=== PATIENT | male | born 1935 | race Caucasian/White ===

== ENCOUNTER 2020-01-28 10:14 | Outpatient (CLI) | payer MEDICARE ==
[~2020-01-28 10:14] MED LIST: Magnevist 469MG/ML 20 ML VIAL ONE
--- NOTE | 2020-01-28 11:58 | MRI ---
MRI of thebrain with and without contrast: 01/28/2020 COMPARISON:None available HISTORY:Memory loss TECHNIQUE: Multiplanar multisequence MR imaging of thebrain with and without contrast Findings:The diffusion weighted imaging demonstrates no evidence for acute infarction. The axial gradient echo imaging demonstrates no evidence for intracranial hemorrhage. There is mild mucosal thickening involving the ethmoid air cells bilaterally. Arterial flow voids at the axial level of the skull base appear grossly unremarkable on the T2-weight ed imaging. There is mild/moderate diffuse cerebral volume loss with associated prominence of the ventricular sys tem. There are a few foci of increased T2 and FLAIR signal within the white matter suggesting mild small v essel disease. The postcontrast imaging demonstrates no abnormal enhancement within the brain parenchyma. Small foci of increased T2 and FLAIR signal noted within the right cerebellar hemisphere consistent w ith areas of prior infarction. IMPRESSION:Chronic findings as detailed above. No evidence for intracranial hemorrhage, acute infarct ion, or mass lesion.
== END 2020-01-28 10:15 | disposition home or self-care (01) ==
LOC: BICMRI 10:14
PROVIDERS: ATTEND Nurse Practitioner Acute Care
DX: R41.3 Other amnesia (principal); G31.89 Other specified degenerative diseases of nervous system; R90.89 Other abnormal findings on diagnostic imaging of central nervous system; J34.89 Other specified disorders of nose and nasal sinuses
CPT/HCPCS: 70553; 82565; A9579

== ENCOUNTER 2020-04-27 18:05 | Inpatient (IN) | payer MEDICARE ==
--- NOTE | 2020-04-27 18:28 | RAD ---
SINGLE VIEW CHEST: Date: 04/27/2020 COMPARISON: None. HISTORY: Weakness for 1 week and altered mental status. FINDINGS: Single view of the chest shows an enlarged cardiomediastinal silhouette. There is no evidence of cons olidation, mass, or pleural effusion. Degenerative changes are seen in the spine. There is a remote l eft clavicle fracture. IMPRESSION: No evidence of acute cardiopulmonary disease. POS: EAA
[2020-04-27 18:55] LABS: Bacteria/HPF None Seen HPF (None Seen); Bilirubin Negative (Negative); Blood, Urine 2+ (Negative); Clarity Clear (Clear); Glucose, Urine (Dipstick) Normal (Negative); Ketone, Urine Negative (Negative); Leukocyte Negative Leu/uL (Negative); Nitrite Negative (Negative); Protein, Urine (Dipstick) 30 mg/dL (Neg-Trace); RBC/HPF 0-3 HPF (0-3); Specific Gravity, Urine 1.025 (1.002-1.036); Squamous Epithelial None Seen HPF (0-3); WBC/HPF 0-3 HPF (0-3); pH, Urine 5.5 (5.0-9.0)
[2020-04-27 18:56] LABS: Amphetamine Not Detected (NotDetected); Barbiturates Screen Not Detected (NotDetected); Benzodiazepine Screen Not Detected (NotDetected); Cocaine Metabolite Screen Not Detected (NotDetected); Medtox Control Line Valid? VALID (VALID); Medtox Reader # READER 1; Methadone Not Detected (NotDetected); Methamphetamine Not Detected (NotDetected); Opiate Screen Not Detected (NotDetected); Oxycodone Screen Not Detected (NotDetected); Phencyclidine (PCP) Not Detected (NotDetected); THC/Cannabinoid Screen Not Detected (NotDetected); Tricyclic Screen Not Detected (NotDetected)
[2020-04-27 19:17] LABS: ALT (SGPT) 34 U/L (8-55); AST (SGOT) 119 U/L (5-34); Acetaminophen Less than 6.0 mcg/mL (10.0-30.0); Albumin 3.8 g/dL (3.4-4.8); Alcohol Less than 10 mg/dL (Less than 10); Alkaline Phosphatase 86 U/L (40-110); Anion Gap 15 mmol/L (10-20); BUN (Urea Nitrogen) 27 mg/dL (8.4-25.7); Bilirubin, Total 0.7 mg/dL (0.2-1.2); Calc. Creatinine Clearance 0 mL/min (70-130); Carbon Dioxide 28 mmol/L (23-31); Chloride 101 mmol/L (98-107); Globulin 3.6 g/dL (2.4-3.5); Glucose 96 mg/dL (83-110); Potassium 4.3 mmol/L (3.5-5.1); Protein, Total 7.4 g/dL (5.8-8.1); Salicylate Less than 8.0 mg/dL (15.0-30.0); Sodium 140 mmol/L (136-145)
--- NOTE | 2020-04-27 19:23 | CT ---
BRAIN CT WITHOUT IV CONTRAST: History: Altered mental status. FINDINGS: There is some atrophy and chronic white matter ischemic change. No focal mass or midline shift. No in tra or extraaxial hemorrhage. Sinuses and mastoids show no acute process. IMPRESSION: Atrophy and chronic white matter ischemic change. No mass or bleed. POS: RRE
[2020-04-27 19:24] LABS: CK (CPK) 6190 U/L (30-200); Hemoglobin 18.3 g/dL (14.0-18.0); Mean Corpuscular HGB CONC 33.6 g/dL (32.0-36.0); Mean Corpuscular Hemoglobin 32.5 pg (27.0-31.0); Mean Corpuscular Volume 96.8 fL (78.0-98.0); Mean Platelet Volume 7.7 fL (7.4-10.4); Platelet Count 190 thou/uL (130-400); RBC Distribution Width 12.9 % (11.5-14.5); Red Blood Cell (RBC) Count 5.62 mill/uL (4.70-6.10); White Blood Cell (WBC) Count 7.2 thou/uL (4.8-10.8)
[2020-04-27 19:35] LABS: CKMB 11.1 ng/mL (0-6.6)
[2020-04-27] MEDS ORDERED: Aspirin 325 MG TAB ONE (19:44)
[2020-04-27 19:47] LABS: Band 3 % (5-11); Lymphocytes 9 % (21-51); MDiff Complete? YES; Monocytes 17 % (0-10); Neutrophil 62 % (42-75); Platelet Morphology Comment Appears Adequate; RBC Morphology Normal; Reactive Lymphocytes 9 % (0-10)
--- NOTE | 2020-04-27 21:14 | PDOC.HHP ---
Hospitalist HPI Weakness History of Present Illness: This is an 84-year-old male patient with a history of cardiomegaly, hepatitis wh o presents to the ED this evening on account of progressive general weakness and a fall. Initial evaluation notes rhabdomyolysis Patient notes that he has otherwise been generally activepush-ups and running on a daily basis. Over the past month however he is becoming progressively more weak and unable to leave up to his tasks. He has fallen a couple of times in the past week. A couple of days ago he fell at home when he was by himself at night and he was too weak to get up and stayed on the ground all night till morning. He denies any associated diarrhea, polyuria or vomiting. He also denies the use of steroids or fibroids or any medication that would induce rhabdomyolysis. His friend found him and sent him to the ED yesterday. He he said at [facility]. I however do not see any records. He told me he was called to come back and he came here for further evaluation. He denies having lost consciousness or syncope or had any palpitations prior to his falls. He notes that they were mechanical in nature. Prior to this event he has not had any falls. He notes that he has been told he has irregular heartbeats however has not been formally diagnosed if atrial fibrillation or any arrhythmia for the metallic At presentation his blood pressure was 154/83, pulse 86, respiratory rate 18, temperature 98.2, saturation 98% on room air. CBC showed WBC of 7.7, hemoglobin 18.3 and platelets 190. Chemistry showed potassium 4.3, sodium 140 creatinine 1.34 from a baseline of 1.23 about a year ago. Troponin was 0.053 and AST 119. His creatinine kinase was 6190. Urinalysis showed proteinuria and 2+ blood. Alcohol and urine drug screen was essentially negative. Salicylate and acetaminophen were negative as well. Chest x-ray showed no acute events. Brain CT showed atrophy and chronic white matter changes however noted no acute events. EKG/monitoring showed A. fib with right bundle branch block. He he received 2 L normal saline and 3 to 4 mg aspirin. Hospitalist team was consulted to admit. Allergies/Adverse Reactions: Allergy/AdvReac Type Severity Reaction Status Date / Time No Allergy Information Allergy Unverified 03/28/20 13:49 Available Past History: PMHx: Cardiomegaly, hepatitis PSHx: Hand surgery. 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 He does not smoke drink or use illicit drugs. Hospitalist HPI ROS Constitutional: reports: weakness, malaise. denies: fever, chills, sweats Respiratory: denies: cough, shortness of breath, hemoptysis, SOB with excertion Cardiovascular: denies: chest pain, palpitations, orthopnea, paroxysmal noc. dys pnea Genitourinary: reports: incontinence (Occasional edge incontinence). denies: dysuria, frequency, hematuria, retention Neurological: denies: weakness, numbness, incoordination, change in speech All other systems reviewed; all pertinent +/- noted in HPI/Subj Hospitalist Exam General Appearance: awake alert General - other findings: In no acute distress Eye: PERRL, anicteric sclera ENT: normocephalic atraumatic Neck: supple Heart: no murmur, no gallops, no rubs, irregular Respiratory: CTAB, no wheezes, no rales, no ronchi Gastrointestinal: soft, non-tender, non-distended, normal bowel sounds Extremities: no cyanosis, no clubbing, no edema Neurological: cranial nerve grossly intact, no focal deficits Neurological - other findings: Tremors in upper limbs bilaterally. Psychiatric: normal affect, A&O x 3 Hospitalist Results Result Diagrams: 04/27/20 18:22 04/27/20 18:22 Lab results: Laboratory Last Values WBC 7.2 thou/uL (4.8-10.8) 04/27/20 18: RBC 5.62 mill/uL (4.70-6.10) 04/27/20 18: Hgb 18.3 g/dL (14.0-18.0) H 04/27/20 18: Hct 54.4 % (42.0-52.0) H 04/27/20 18: MCV 96.8 fL (78.0-98.0) 04/27/20 18: MCH 32.5 pg (27.0-31.0) H 04/27/20 18: MCHC 33.6 g/dL (32.0-36.0) 04/27/20 18:22 RDW 12.9 % (11.5-14.5) 04/27/20 18:22 Plt Count 190 thou/uL (130-400) 04/27/20 18:22 MPV 7.7 fL (7.4-10.4) 04/27/20 18:22 Neutrophils % (Manual) 62 % (42-75) 04/27/20 18:22 Band Neuts % (Manual) 3 % (5-11) L 04/27/20 18:22 Lymphocytes % (Manual) 9 % (21-51) L 04/27/20 18:22 Reactive Lymphs % 9 % (0-10) 04/27/20 18:22 Monocytes % (Manual) 17 % (0-10) H 04/27/20 18:22 Lymphocytes # Not Reportable 04/27/20 18:22 Plt Morphology Comment Appears Adequate 04/27/20 18: RBC Morph Comment Normal 04/27/20 18:22 Sodium 140 mmol/L (136-145) 04/27/20 18:22 Potassium 4.3 mmol/L (3.5-5.1) 04/27/20 18: Chloride 101 mmol/L (98-107) 04/27/20 18:22 Carbon Dioxide 28 mmol/L (23-31) 04/27/20 18:22 Anion Gap 15 mmol/L (10-20) 04/27/20 18:22 BUN 27 mg/dL (8.4-25.7) H 04/27/20 18:22 Creatinine 1.34 mg/dL (0.7-1.3) H 04/27/20 18:22 Estimated GFR (MDRD) 51 04/27/20 18:22 Glucose 96 mg/dL (83-110) 04/27/20 18:22 Calcium 9.0 mg/dL (7.8-10.44) 04/27/20 18:22 Total Bilirubin 0.7 mg/dL (0.2-1.2) 04/27/20 18:22 AST 119 U/L (5-34) H 04/27/20 18:22 ALT 34 U/L (8-55) 04/27/20 18:22 Alkaline Phosphatase 86 U/L (40-110) 04/27/20 18:22 Creatine Kinase 6190 U/L (30-200) H 04/27/20 18:22 CK-MB (CK-2) 11.1 ng/mL (0-6.6) H* 04/27/20 18: Troponin I 0.053 ng/mL (< 0.028) H 04/27/20 18:22 Serum Total Protein 7.4 g/dL (5.8-8.1) 04/27/20 18: Albumin 3.8 g/dL (3.4-4.8) 04/27/20 18: Globulin 3.6 g/dL (2.4-3.5) H 04/27/20 18: Albumin/Globulin Ratio 1.1 g/dL (1.2-2.2) L 04/27/20 18: Lipase 45 U/L (8-78) 04/27/20 18: TSH 3rd Generation 2.3082 uIU/mL (0.35-4.94) 04/27/20 18:22 Urine Color Yellow (Yellow) 04/27/20 18:16 Urine Clarity Clear (Clear) 04/27/20 18:16 Urine pH 5.5 (5.0-9.0) 04/27/20 18:16 Ur Specific [facility] 1.025 (1.002-1.036) 04/27/20 18:16 Urine Protein 30 mg/dL (Neg-Trace) A 04/27/20 18:16 Urine Glucose (UA) Normal mg/dL (Negative) 04/27/20 18:16 Urine Ketones Negative mg/dL (Negative) 04/27/20 18:16 Urine Blood 2+ (Negative) A 04/27/20 18:16 Urine Nitrite Negative (Negative) 04/27/20 18:16 Urine Bilirubin Negative (Negative) 04/27/20 18:16 Urine Urobilinogen 2.0 mg/dL (Less than 2) A 04/27/20 18:16 Ur Leukocyte Esterase Negative Fausto/uL (Negative) 04/27/20 18:16 Urine RBC 0-3 HPF (0-3) 04/27/20 18:16 Urine WBC 0-3 HPF (0-3) 04/27/20 18:16 Ur Squamous Epith Cells None Seen HPF (0-3) 04/27/20 18:16 Urine Bacteria None Seen HPF (None Seen) 04/27/20 18:16 Hyaline Casts 11-20 LPF (0-3) A 04/27/20 18:16 Granular Casts 0-3 LPF (None Seen) A 04/27/20 18:16 Salicylates Less than 8.0 mg/dL (15.0-30.0) L 04/27/20 18:22 Urine Opiates Screen Not Detected (NotDetected) 04/27/20 18:16 Ur Oxycodone Screen Not Detected (NotDetected) 04/27/20 18:16 Urine Methadone Screen Not Detected (NotDetected) 04/27/20 18:16 Ur Propoxyphene Screen Not Detected (NotDetected) 04/27/20 18:16 Acetaminophen Less than 6.0 mcg/mL (10.0-30.0) L 04/27/20 18:22 Ur Barbiturates Screen Not Detected (NotDetected) 04/27/20 18:16 Ur Tricyclics Screen Not Detected (NotDetected) 04/27/20 18:16 Ur Phencyclidine Scrn Not Detected (NotDetected) 04/27/20 18:16 Ur Amphetamines Screen Not Detected (NotDetected) 04/27/20 18:16 U Methamphetamines Scrn Not Detected (NotDetected) 04/27/20 18:16 U Benzodiazepines Scrn Not Detected (NotDetected) 04/27/20 18:16 U Cocaine Metab Screen Not Detected (NotDetected) 04/27/20 18:16 U Cannabinoids Screen Not Detected (NotDetected) 04/27/20 18:16 Drug Screen Comment () 04/27/20 18:16 Plasma Alcohol Less than 10 mg/dL (Less than 10) 04/27/20 18:22 Hospitalist H&P A/P Plan: This is an 84-year-old male patient with a history of hepatitis and cardiomegaly who presents with recurrent falls weakness and rhabdomyolysis. Generalized weakness Unclear etiology Has history of cardiomegaly We will check magnesium phosphorus and echocardiogram in a.m. PT evaluation Cardiology/neuro consult if indicated. Rhabdomyolysis CK above 6000likely due to fall. No history of medicationfibrate/statin or any other that could be a culprit May have been higher prior to presentation. Renal function appears intact Received 2 L amoxicillin Continue 150 mils Repeat CK in a.m. Elevated troponin Troponin at 0.053unlikely This could be due to rhabdomyolysis Received 324 mg aspirin No chest pain no concerning EKG changes We will trend troponin Recurrent falls Probably due to weakness May be of cardiac origin We will monitor overnight in telemetry Orthostatic vitals Consider cardiology evaluation if indicated PT in a.m. CKD Creatinine slightly elevated Monitor BMP Avoid nephrotoxic agents. History of cardiomegaly Echo in a.m. Cardiology evaluation if indicated. CODE STATUSfull code VT prophylaxisLovenox
[2020-04-27 23:16] LABS: Phosphorus 2.7 mg/dL (2.3-4.7)
[2020-04-27] MEDS: Sodium Chloride 0.9% 1,000 ML IV SCH (23:49)
--- NOTE | 2020-04-28 13:58 | PDOC.HOSPP ---
- Subjective Encounter Date: 04/28/20 Subjective: Overnight. Patient is alert and awake. He does not remember how he got to the hospital. He states that his roommate might have called the ambulance after he was found down. Patient does not take any medications at home, he does not remember any chronic medical issues. - Objective Vital Signs & Weight: Vital Signs (12 hours) Pulse Pulse BP BP 04/28/20 10:55 81 87 133/70 140/90 Result Diagrams: 04/27/20 18:22 04/27/20 18:22 Hospitalist ROS - Medication Medications: Active Medications Generic Name Dose Route Start Last Admin Trade Name Freq PRN Reason Stop Dose Admin Sodium Chloride 1,000 mls @ 125 mls/hr 04/27/20 20:45 04/27/20 23:49 Normal Saline 0.9% IV 1,000 mls .Q8H MAG Administration Hospitalist Exam Vitals: Vital Signs (12 hours) Pulse Pulse BP BP 04/28/20 10:55 81 87 133/70 140/90 General Appearance: NAD, awake alert Eye: anicteric sclera Eye - other findings: EOMi ENT: normocephalic atraumatic Neck: supple Heart: RRR, no murmur, no gallops, no rubs Respiratory: CTAB, no wheezes, no rales, no ronchi Gastrointestinal: soft, non-tender, non-distended, normal bowel sounds Extremities: no clubbing, no edema Extremities - other findings: Good range of motion in all extremities Neurological: cranial nerve grossly intact, no weakness, no focal deficits, no new deficit Neurological - other findings: Normal speech and mental status Musculoskeletal: normal tone, normal strength Psychiatric: normal affect, normal behavior Hosp A/P (1) Syncope and collapse Code(s): R55 - SYNCOPE AND COLLAPSE Status: Acute (2) Rhabdomyolysis Code(s): M62.82 - RHABDOMYOLYSIS Status: Acute (3) Acute metabolic encephalopathy Code(s): G93.41 - METABOLIC ENCEPHALOPATHY Status: Acute - Plan Assessment Patient is a 84-year-old male with a past medical history of dementia, hypertension, hepatitis brought into the ED after he was found down for an unknown duration of time. He does not remember the circumstances leading up to this event. He has fallen multiple times in the past. 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 Orthostatic vitals were negative on admission. His EKG showed right bundle branch block. There is a 2D echo pending. Other findings include rhabdomyolysis Syncope and collapse Recurrent falls Rhabdomyolysis Irregular heart rhythm Stage III CKD Hepatitis Dementia Plan: I will obtain a D-dimer to assess for venous thromboembolism Repeat EKG since the initial one was concerning for A. fib Follow-up 2D echo Continue NS infusion rhabdo Will hold off home dose of hydrochlorothiazide patient is mildly hypotensive PT/OT while in-house Fall precautions Resume home dose of donepezil and memantine upon discharge
[2020-04-28] MEDS: Sodium Chloride 0.9% 1,000 ML IV SCH ×3 (14:49→22:24)
[2020-04-28] MEDS: Enoxaparin Sodium 40 MG/0.4 ML SYRINGE SC SCH (14:49)
[2020-04-28 15:33] LABS: Anion Gap 16 mmol/L (10-20); BUN (Urea Nitrogen) 26 mg/dL (8.4-25.7); Calc. Creatinine Clearance 0 mL/min (70-130); Calcium 8.3 mg/dL (7.8-10.44); Carbon Dioxide 25 mmol/L (23-31); Chloride 103 mmol/L (98-107); Glucose 65 mg/dL (83-110); Potassium 3.6 mmol/L (3.5-5.1); Sodium 140 mmol/L (136-145)
[2020-04-28 15:34] LABS: CK (CPK) 4167 U/L (30-200)
--- NOTE | 2020-04-28 18:00 | CON ---
DATE OF CONSULTATION: HISTORY: Daria Goyal is an 84-year-old white male, admitted after being found down at home. He states he was told as a teenager that he had an enlarged heart and was kept out of physical activity. 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 He has never had hospitalization for a cardiac issue. He denies any chest pain or shortness of breath. He had an episode of dizziness and found himself on the floor. He does not remember much about the fall. He was too weak to even get up and so laid on the floor overnight. He was then sent to the hospital for further evaluation. He denies ever having any palpitations or being told that he had atrial fibrillation. PAST MEDICAL HISTORY: No history of hypertension, diabetes, or hypercholesterolemia. He has received both COVID shots. MEDICATIONS: None. ALLERGIES: PENICILLIN. SOCIAL HISTORY: He does not smoke or drink. REVIEW OF SYSTEMS: 10-point review of systems is otherwise unremarkable. PHYSICAL EXAMINATION: VITAL SIGNS: Blood pressure 114/68, pulse of 97 and irregularly irregular. HEENT: PERRL. NECK: Supple. CHEST: Clear. CARDIAC: S1 and S2 normal without any S3, S4, or murmurs. ABDOMEN: Normal bowel sounds without tenderness. EXTREMITIES: Revealed no clubbing, cyanosis, or edema. NEUROLOGIC: Grossly intact. SKIN: Warm and dry. LABORATORY DATA: EKG revealed atrial fibrillation with left axis deviation, right bundle-branch block. Hemoglobin 18.3, hematocrit 54.4, white count 7200, and platelets 190,000. BUN was 27, creatinine 1.34 on admission, however fallen to a BUN of 26 and creatinine of 1.05. CK 6190, CK-MB 11.1, troponin I 0.053. TSH is normal. Urine drug screen is negative. IMPRESSION: 1. Found down at home after spending the night on the floor. From discussing this with him, he certainly could have had an episode of syncope that led to this. 2. Atrial fibrillation of uncertain duration. 3. Rhabdomyolysis. PLAN: Echocardiogram has been performed, however, could not be read due to the system being down, probably related to the snow and cold weather. We will continue to follow with you. Job ID: [id number]
[2020-04-28 18:48] LABS: HBCM Index 0.07 S/CO (0-0.79); HBSAg Index 0.22 S/CO (0-0.99); Hep A IgM AB Non-Reactive (NonReactive); Hep A IgM S/CO 0.35 S/CO (0-0.79); Hep B Surf Ag Non-Reactive S/CO (NonReactive); Hep C IgG Ab Non-Reactive (NonReactive); Hepatitis B Core IgM Abs Non-Reactive (NonReactive)
[2020-04-28 19:11] LABS: Band 3 % (5-11); Eosinophils 6 % (0-10); Hemoglobin 15.8 g/dL (14.0-18.0); Lymphocytes 14 % (21-51); MDiff Complete? YES; Macrocytosis SLIGHT = 6-15 cells (100X) (0-5/hpf); Mean Corpuscular HGB CONC 33.6 g/dL (32.0-36.0); Mean Corpuscular Hemoglobin 33.5 pg (27.0-31.0); Mean Corpuscular Volume 99.7 fL (78.0-98.0); Monocytes 18 % (0-10); Neutrophil 43 % (42-75); Platelet Count 163 thou/uL (130-400); Platelet Morphology Comment Appears Adequate; Polychromasia SLIGHT = 2-3 cells (100X) (0-2/hpf); Reactive Lymphocytes 16 % (0-10); Red Blood Cell (RBC) Count 4.72 mill/uL (4.70-6.10); White Blood Cell (WBC) Count 5.9 thou/uL (4.8-10.8)
[2020-04-28] MEDS ORDERED: hydrALAZINE 20 MG/ML VIAL SLOW IVP PRN (21:59)
[2020-04-28 23:57] VITALS: BMI 17.4
[2020-04-29] MEDS: Sodium Chloride 0.9% 1,000 ML IV SCH ×3 (03:40→20:20)
[2020-04-29] MEDS: NIFEdipine XL 30 MG TAB PO SCH (09:20)
[2020-04-29] MEDS: Enoxaparin Sodium 40 MG/0.4 ML SYRINGE SC SCH (09:20)
[2020-04-29] MEDS ORDERED: Apixaban 5 MG TAB PO SCH (09:45)
[2020-04-29] MEDS ORDERED: Dronedarone HCl 400 MG TAB PO SCH (09:45)
--- NOTE | 2020-04-29 14:22 | PDOC.HOSPP ---
- Subjective Encounter Date: 04/29/20 Subjective: Events overnight. Was using the bathroom when I was in the room. - Objective Vital Signs & Weight: Vital Signs (12 hours) Temp Pulse Resp BP Pulse Ox 04/29/20 11:59 97.8 F 81 17 163/97 H 97 04/29/20 07:56 98.3 F 84 16 153/83 H 97 04/29/20 05:08 165/98 H 04/29/20 03:00 98.5 F 74 16 183/96 H Weight Weight 139 lb 15.896 oz I&O: 04/28/20 04/29/20 04/30/20 06:59 06:59 06:59 Intake Total 2745 Output Total 900 Balance 1845 Result Diagrams: 04/28/20 04:19 04/28/20 04:19 Hospitalist ROS - Medication Medications: Active Medications Generic Name Dose Route Start Last Admin Trade Name Freq PRN Reason Stop Dose Admin Sodium Chloride 1,000 mls @ 125 mls/hr 04/27/20 20:45 04/29/20 12:02 Normal Saline 0.9% IV 1,000 mls .Q8H MAG Administration Nifedipine 30 mg 04/29/20 09:00 04/29/20 09:20 Nifedipine Xl 30 Mg Tab PO 30 mg DAILY MAG Administration Sodium Chloride 10 ml 04/29/20 09:00 04/29/20 09:19 Flush - Normal Saline 10 Ml Syringe IVF Not Given Q12HR [facility] Hospitalist Exam Vitals: Vital Signs (12 hours) Temp Pulse Resp BP Pulse Ox 04/29/20 11:59 97.8 F 81 17 163/97 H 97 04/29/20 07:56 98.3 F 84 16 153/83 H 97 04/29/20 05:08 165/98 H 04/29/20 03:00 98.5 F 74 16 183/96 H Weight Weight 139 lb 15.896 oz General Appearance: NAD Eye: anicteric sclera ENT: normocephalic atraumatic Neurological: cranial nerve grossly intact Psychiatric: normal affect, normal behavior Hosp A/P (1) Syncope and collapse Code(s): R55 - SYNCOPE AND COLLAPSE Status: Acute (2) Rhabdomyolysis Code(s): M62.82 - RHABDOMYOLYSIS Status: Acute (3) Acute metabolic encephalopathy Code(s): G93.41 - METABOLIC ENCEPHALOPATHY Status: Acute - Plan Assessment Patient is a 84-year-old male with a past medical history of dementia, and hypertension brought into the ED after he was found down for an unknown duration of time. He does not remember the circumstances leading up to this event. He has fallen multiple times in the past. 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 Orthostatic vitals were negative on admission. His EKG showed right bundle branch block and there is also concern for atrial fibrillation. For this reason, cardiology was consulted. 2D echo revealed moderate aortic regurgitation. Otherwise unremarkable with normal LVEF. Other findings include rhabdomyolysis Syncope and collapse Recurrent falls Rhabdomyolysis Irregular heart rhythm, possible atrial fibrillation Stage III CKD Dementia Plan: Continue volume repletion management of rhabdomyolysis Continue holding off HCTZ. I will most likely stop it upon discharge I will start patient on nifedipine for persistent hypertension PT/OT while in-house Fall precautions Follow-up cardiology recommendation Resume home dose of donepezil and memantine upon discharge
[2020-04-29] MEDS: Dronedarone HCl 400 MG TAB PO SCH (16:20)
--- NOTE | 2020-04-29 17:26 | PQF ---
CLINICAL DOCUMENTATION CLARIFICATION FORM: Dear Dr. Monahan Date 04/29/20 Please exercise your independent, professional judgment in responding to the clarification form. Clinical indicators are provided on the bottom of this form for your review Please check appropriate box(es): [ ] Acute Rhabdomyolysis (non-traumatic) [ x ] Traumatic Rhabdomyolysis [ ] Other diagnosis [ ] Unable to determine In addition, please specify: Present on Admission (POA): [ ] Yes [ ] No [ ] Unable to determine For continuity of documentation, please document condition throughout progress notes and discharge summary. Thank You. To be completed by CDI/Coding staff for physician review: CLINICAL INDICATORS - SIGNS / SYMPTOMS / LABS / RESULTS AND LOCATION IN EMR PN 04/28: "ACUTE RHABDOMYOLYSIS" CK 04/27: 6190 / CKMB 11.1 RISK FACTORS / RESULTS AND LOCATION IN EMR H/O MULTIPLE FALLS IN THE PAST (PN- [place] 04/28) FOUND DOWN FOR AN UNKNOWN DURATION (PN 04/28- [place]) H&P: "GENERALLY ACTIVE- PUSH-UPS AND RUNNING ON A DAILY BASIS" ADVANCED AGE TREATMENTS / RESULTS AND LOCATION IN EMR IV FLUIDS (ER PRESENT) CARDIAC MONITORING CARDIOLOGY CONSULT CDS Signature: Melani Mckeon RN Phone #: [phone] Date: 04/29/20 This is a permanent part of the Medical Record [facility]
[2020-04-29] MEDS: Apixaban 5 MG TAB PO SCH (20:20)
[2020-04-30] MEDS: Sodium Chloride 0.9% 1,000 ML IV SCH ×2 (04:11→14:52)
[2020-04-30] MEDS: Dronedarone HCl 400 MG TAB PO SCH ×2 (09:24→17:47)
[2020-04-30] MEDS: Apixaban 5 MG TAB PO SCH ×2 (09:24→20:16)
[2020-04-30] MEDS: NIFEdipine XL 30 MG TAB PO SCH (09:24)
--- NOTE | 2020-04-30 17:31 | PDOC.HOSPP ---
- Subjective Encounter Date: 04/30/20 Subjective: Events overnight. Patient has been downgraded from PT to walking program. He has no ongoing symptoms at this time. He staying in the hospital for 1 more day pending YOLETTE/diversion for evaluation management of atrial fibrillation. - Objective Vital Signs & Weight: Vital Signs (12 hours) Temp Pulse Resp BP BP BP Pulse Ox 04/30/20 16:00 98.1 F 78 15 132/78 97 04/30/20 12:00 98.3 F 68 16 142/78 H 105/70 97 04/30/20 09:24 75 04/30/20 08:00 97.9 F 78 18 111/70 97 Weight Weight 215 lb 7 oz I&O: 04/29/20 04/30/20 05/01/20 06:59 06:59 06:59 Intake Total 2745 2415 Output Total 900 1875 Balance 1845 540 Result Diagrams: 04/28/20 04:19 04/28/20 04:19 Hospitalist ROS - Medication Medications: Active Medications Generic Name Dose Route Start Last Admin Trade Name Freq PRN Reason Stop Dose Admin Apixaban 5 mg 04/29/20 21:00 04/30/20 09:24 Apixaban 5 Mg Tab PO 5 mg BID MAG Administration Dronedarone 400 mg 04/29/20 17:00 04/30/20 09:24 Dronedarone Hcl 400 Mg Tab PO 400 mg BID-WM MAG Administration Sodium Chloride 1,000 mls @ 125 mls/hr 04/27/20 20:45 04/30/20 14:52 Normal Saline 0.9% IV 1,000 mls .Q8H MAG Administration Nifedipine 30 mg 04/29/20 09:00 04/30/20 09:24 Nifedipine Xl 30 Mg Tab PO 30 mg DAILY MAG Administration Sodium Chloride 10 ml 04/29/20 09:00 04/30/20 09:24 Flush - Normal Saline 10 Ml Syringe IVF 10 ml Q12HR MAG Administration Hospitalist Exam Vitals: Vital Signs (12 hours) Temp Pulse Resp BP BP BP Pulse Ox 04/30/20 16:00 98.1 F 78 15 132/78 97 04/30/20 12:00 98.3 F 68 16 142/78 H 105/70 97 04/30/20 09:24 75 04/30/20 08:00 97.9 F 78 18 111/70 97 Weight Weight 215 lb 7 oz General Appearance: NAD, awake alert Eye: anicteric sclera ENT: normocephalic atraumatic Heart: no murmur, irregular Respiratory: CTAB, no wheezes, no ronchi Extremities: no clubbing, no edema Neurological - other findings: Memory deficits Hosp A/P (1) Syncope and collapse Code(s): R55 - SYNCOPE AND COLLAPSE Status: Acute (2) Rhabdomyolysis Code(s): M62.82 - RHABDOMYOLYSIS Status: Acute (3) Acute metabolic encephalopathy Code(s): G93.41 - METABOLIC ENCEPHALOPATHY Status: Acute - Plan Assessment Patient is a 84-year-old male with a past medical history of dementia, and hypertension brought into the ED after he was found down for an unknown duration of time. He does not remember the circumstances leading up to this event. He has fallen multiple times in the past. 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 Orthostatic vitals were negative on admission. His EKG showed right bundle branch block and concern for atrial fibrillation. For this reason, cardiology was consulted. 2D echo revealed moderate aortic regurgitation. He is pending YOLETTE and possible cardioversion tomorrow Syncope and collapse Recurrent falls Rhabdomyolysis Irregular heart rhythm, possible atrial fibrillation Stage III CKD Dementia Plan: NPO tomorrow for YOLETTE/DCCV Dronederone and apixaban as per Cardiology Will add coreg if blood pressure permits Continue nifedipine for BP DC IVF infusion now CK < 1K Continue holding off HCTZ. I will most likely stop it upon discharge Cleared by PT Continue home dose of donepezil and memantine
--- NOTE | 2020-04-30 18:29 | EKG ---
Test Reason : Blood Pressure : / mmHG Vent. Rate : 072 BPM Atrial Rate : 144 BPM P-R Int : 000 ms QRS Dur : 138 ms QT Int : 408 ms P-R-T Axes : 000 -33 008 degrees QTc Int : 446 ms Atrial fibrillation Left axis deviation Right bundle branch block Inferior infarct , age undetermined Abnormal ECG No previous ECGs available Confirmed by RANGEL MANUEL, DR. Ann ([id number]) on 04/30/2020 6:28:49 PM Referred By: MARTIN Confirmed By:DR. Seth MULTANI MD
[2020-04-30] MEDS: Donepezil HCl 10 MG TAB PO SCH (20:16)
[2020-05-01] MEDS: Dronedarone HCl 400 MG TAB PO SCH ×2 (08:50→16:16)
[2020-05-01] MEDS: Apixaban 5 MG TAB PO SCH ×2 (08:50→20:58)
[2020-05-01] MEDS: NIFEdipine XL 30 MG TAB PO SCH (08:50)
[2020-05-01 09:25] LABS: SARS-CoV-2 NAA Rapid Test Not Detected (NotDetected)
[2020-05-01] MEDS ORDERED: Fentanyl 100 MCG/2 ML VIAL ONE (10:19)
[2020-05-01] MEDS ORDERED: PROPOFOL 20 ML ONE (10:19)
--- NOTE | 2020-05-01 11:23 | OP ---
DATE OF PROCEDURE: 05/01/2020 STUDY PERFORMED: Transesophageal echocardiogram. INDICATIONS FOR PROCEDURE: An 84-year-old gentleman with mitral regurgitation. DESCRIPTION OF PROCEDURE: The patient was taken to the PACU. The patient was sedated by Anesthesiology. A transesophageal probe was placed into the distal esophagus and stomach. Echocardiographic images were obtained. The transesophageal probe was removed. FINDINGS: 1. Normal left ventricular systolic function. 2. Biatrial enlargement. 3. Moderate mitral regurgitation. 4. Mild tricuspid regurgitation. 5. Mild aortic regurgitation. 6. No thrombus in left atrium or left atrial appendage. 7. Atherosclerotic debris in the descending aorta. IMPRESSION: Moderate mitral regurgitation with no formed thrombus in the left atrium or left atrial appendage. Job ID: [id number] [facility]
--- NOTE | 2020-05-01 15:29 | PDOC.HOSPP ---
- Subjective Encounter Date: 05/01/20 Subjective: Patient had a YOLETTE today. Tolerated the procedure well. He was seen by me in the PACU just before his procedure. He was alert and awake with no complaints. - Objective Vital Signs & Weight: Vital Signs (12 hours) Temp Pulse Resp BP BP Pulse Ox 05/01/20 11:38 97.6 F 77 14 164/84 H 98 05/01/20 08:50 75 163/95 H 05/01/20 07:35 97.7 F 75 15 163/95 H 96 05/01/20 04:00 98.0 F 75 18 161/94 H 95 Weight Weight 206 lb 7 oz I&O: 04/30/20 05/01/20 05/02/20 06:59 06:59 06:59 Intake Total 2415 2610 415 Output Total 1875 1900 50 Balance 540 710 365 Result Diagrams: 04/28/20 04:19 04/28/20 04:19 Hospitalist ROS - Medication Medications: Active Medications Generic Name Dose Route Start Last Admin Trade Name Freq PRN Reason Stop Dose Admin Apixaban 5 mg 04/29/20 21:00 05/01/20 08:50 Apixaban 5 Mg Tab PO 5 mg BID MAG Administration Donepezil HCl 10 mg 04/30/20 21:00 04/30/20 20:16 Donepezil Hcl 10 Mg Tab PO 10 mg HS MAG Administration Dronedarone 400 mg 04/29/20 17:00 05/01/20 08:50 Dronedarone Hcl 400 Mg Tab PO 400 mg BID-WM MAG Administration Memantine 10 mg 04/30/20 21:00 05/01/20 08:50 Memantine Hcl 10 Mg Tab PO 10 mg BID MAG Administration Nifedipine 30 mg 04/29/20 09:00 05/01/20 08:50 Nifedipine Xl 30 Mg Tab PO 30 mg DAILY MAG Administration Sodium Chloride 10 ml 04/29/20 09:00 05/01/20 08:51 Flush - Normal Saline 10 Ml Syringe IVF 10 ml Q12HR MAG Administration Hospitalist Exam Vitals: Vital Signs (12 hours) Temp Pulse Resp BP BP Pulse Ox 05/01/20 11:38 97.6 F 77 14 164/84 H 98 05/01/20 08:50 75 163/95 H 05/01/20 07:35 97.7 F 75 15 163/95 H 96 05/01/20 04:00 98.0 F 75 18 161/94 H 95 Weight Weight 206 lb 7 oz General Appearance: NAD, awake alert Eye: anicteric sclera ENT: normocephalic atraumatic Neck: supple Heart: RRR, no murmur, no gallops, no rubs Respiratory: CTAB, no wheezes, no rales, no ronchi Gastrointestinal: soft, non-tender, non-distended Extremities: no clubbing, no edema Neurological: cranial nerve grossly intact Neurological - other findings: Memory deficits Psychiatric: normal affect, normal behavior Hosp A/P (1) Syncope and collapse Code(s): R55 - SYNCOPE AND COLLAPSE Status: Acute (2) Rhabdomyolysis Code(s): M62.82 - RHABDOMYOLYSIS Status: Acute (3) Acute metabolic encephalopathy Code(s): G93.41 - METABOLIC ENCEPHALOPATHY Status: Acute - Plan Assessment Patient is a 84-year-old male with a past medical history of dementia, and hypertension brought into the ED after he was found down for an unknown duration of time. He does not remember the circumstances leading up to this event. He has fallen multiple times in the past. Work-up during this admission included a brain MRI which showed prior small cerebellar infarct and small ve ssel disease. Orthostatic vitals were negative on admission. His EKG showed right bundle branch block and concern for atrial fibrillation. YOLETTE not show any left atrial thrombus but captured moderate aortic regurgitation. Syncope and collapse Recurrent falls Rhabdomyolysis Irregular heart rhythm, possible atrial fibrillation Stage III CKD Dementia Plan: Patient cleared by cardiology for discharge. He has no ride available today. Family will be able to pick him up tomorrow. Dronederone and apixaban while in-house Added Coreg 12.5 mg Continue nifedipine for BP Stopped HCTZ. I will not resume it upon discharge. Cleared by PT Continue home dose of donepezil and memantine
[2020-05-01] MEDS: Carvedilol 6.25 MG TAB PO SCH (16:16)
[2020-05-01] MEDS: Donepezil HCl 10 MG TAB PO SCH (20:58)
--- NOTE | 2020-05-01 21:24 | EKG ---
Test Reason : POST CARDIOVERSION Blood Pressure : / mmHG Vent. Rate : 062 BPM Atrial Rate : 062 BPM P-R Int : 228 ms QRS Dur : 136 ms QT Int : 460 ms P-R-T Axes : 044 -13 004 degrees QTc Int : 466 ms Sinus rhythm with 1st degree A-V block Possible Left atrial enlargement Right bundle branch block Abnormal ECG When compared with ECG of 28-APR-2020 15:13, Sinus rhythm has replaced Atrial fibrillation Confirmed by RANGEL MANUEL, DR. Ann ([id number]) on 05/01/2020 9:24:13 PM Referred By: JOSR Confirmed By:DR. Seth MULTANI MD
[2020-05-02] MEDS: NIFEdipine XL 30 MG TAB PO SCH (08:37)
[2020-05-02] MEDS: Carvedilol 6.25 MG TAB PO SCH (08:38)
[2020-05-02] MEDS: Dronedarone HCl 400 MG TAB PO SCH (08:38)
[2020-05-02] MEDS: Apixaban 5 MG TAB PO SCH (08:38)
[2020-05-02] MEDS ORDERED: Carvedilol 6.25 MG TAB PO SCH (09:00)
[2020-05-02 11:08] LABS: Hemoglobin 14.8 g/dL (14.0-18.0); Platelet Count 210 thou/uL (130-400)
[2020-05-02 11:29] VITALS: BP 114/69
--- NOTE | 2020-05-02 13:13 | PDOC.DS.DS ---
Provider Date of Admission: 04/27/20 20:07 Date of Discharge: 05/02/20 Admitting Provider: Ze Buckley MD Consultations: Cardiology Primary Care Physician: Ralph Gilbert MD Course Hospital Course: Patient is a 84-year-old male with a past medical history of dementia, recurrent falls, and hypertension who was brought into the ED after he was found down for an unknown duration of time. Brain MRI which showed prior small cerebellar infarct and small vessel disease. Orthostatic vitals were negative on admission. His EKG showed right bundle branch block and concern for atrial fibrillation. Underwent YOLETTE and cardioversion rated the procedure well. He will be discharged on dronedarone, apixaban and Coreg. Patient has been cleared by physical therapy discharge. Additional treatment during the stay included IV fluid for rhabdomyolysis, which is now resolved. I will stop his home dose of HCTZ upon discharge. Resuscitation Status: 04/27/20 20:32 Resuscitation Status Routine Resuscitation Status: FULL: Full Resuscitation Lab Results: 05/02/20 10:58 05/02/20 10:58 Abnormal Lab Results - Last 48 hrs 05/01/20 04:08: Creatine Kinase 568 H 05/02/20 03:20: Creatine Kinase 296 H Vitals: Vital Signs (12 hours) Temp Pulse Resp BP BP Pulse Ox 05/02/20 10:53 114/69 05/02/20 08:38 96 05/02/20 08:27 98.2 F 66 14 169/79 H 96 05/02/20 04:00 97.2 F L 68 18 142/81 H 95 Weight Weight 206 lb 7 oz Physical Exam: The patient was seen and examined on the day of discharge. General Appearance: NAD, awake alert Eye: anicteric sclera ENT: normocephalic atraumatic Neck: supple Respiratory: CTAB, no wheezes, no rales, no ronchi Cardiovascular: RRR, no murmur Extremities: no clubbing, no edema Neurological: cranial nerve grossly intact PSYCH: normal affect, normal behavior Problem (1) Syncope and collapse Code(s): R55 - SYNCOPE AND COLLAPSE Status: Acute (2) Rhabdomyolysis Code(s): M62.82 - RHABDOMYOLYSIS Status: Acute (3) Acute metabolic encephalopathy Code(s): G93.41 - METABOLIC ENCEPHALOPATHY Status: Acute Plan Prescriptions: Carvedilol [Coreg] 25 mg PO BID #60 tab Apixaban [Eliquis] 5 mg PO BID #60 tab Dronedarone HCl [Multaq] 400 mg PO BID-WM #60 tab Home Medications: Medication Instructions Recorded Confirmed Type Donepezil HCl [Aricept] 10 mg PO HS 04/28/20 04/28/20 History Memantine HCl [Namenda] 2 tab PO BID 04/28/20 04/28/20 History Apixaban [Eliquis] 5 mg PO BID #60 tab 05/02/20 Rx Carvedilol [Coreg] 25 mg PO BID #60 tab 05/02/20 Rx Dronedarone HCl [Multaq] 400 mg PO BID-WM #60 tab 05/02/20 Rx Allergies: Penicillins Allergy (Verified 04/27/20 23:10) Referrals: Ralph Gilbert MD [Primary Care Provider] - Disposition: HOME Quality CORE MEASURES:: N/A Did you prescribe antithrombotic therapy?: No Specify reason for no DC antithrombotic therapy: Treatment not indicated Did you prescribe anticoagulant for A Fib/Flutter?: Yes
[2020-05-02 13:59] VITALS: TEMP 98.1
--- NOTE | 2020-05-03 17:32 | EKG ---
Test Reason : Blood Pressure : / mmHG Vent. Rate : 088 BPM Atrial Rate : 394 BPM P-R Int : 000 ms QRS Dur : 130 ms QT Int : 380 ms P-R-T Axes : 000 046 -10 degrees QTc Int : 459 ms Normal sinus rhythm Right bundle branch block Abnormal ECG Confirmed by JAYDEN MANUEL, BETTIE ([id number]), state editor SUREKHA MAGANA ([id number]) on 05/03/2020 5:31:44 PM Referred By: Confirmed By:BETTIE CARPENTER MD
== END 2020-05-02 16:00 | disposition home or self-care (01) | DRG 564 ==
LOC: ERS 18:05 → 2NO 20:07
PROVIDERS: ADMIT Student in an Organized Health Care Education/Training Program; ATTEND Internal Medicine
PROC: B24BZZ4 Ultrasonography of Heart with Aorta, Transesophageal (ICD-10-PCS; principal; 2020-05-01)
DX: T79.6XXA Traumatic ischemia of muscle, initial encounter (principal); G93.41 Metabolic encephalopathy; W19.XXXA Unspecified fall, initial encounter; R29.6 Repeated falls; N18.30 Chronic kidney disease, stage 3 unspecified; F03.90 Unspecified dementia, unspecified severity, without behavioral disturbance, psychotic disturbance, mood disturbance, and anxiety; K75.9 Inflammatory liver disease, unspecified; R55 Syncope and collapse; I48.91 Unspecified atrial fibrillation; Z20.822 Contact with and (suspected) exposure to COVID-19
CPT/HCPCS: 36415; 70450; 71045; 80048; 80053; 80074; 80306; 80307; 81003; 81015; 82550; 82553; 82565; 83690; 83735; 84100; 84443; 84484; 85014; 85018; 85025; 85049; 85379; 87635; 92960; 93005; 93010; 93306; 93312; J1650; J2704; J3010; U0002; U0003; U0005

== ENCOUNTER 2020-06-05 12:47 | Emergency (ER) | payer MEDICARE ==
[2020-06-05 13:24] LABS: Bilirubin Negative (Negative); Blood, Urine Negative (Negative); Clarity Clear (Clear); Glucose, Urine (Dipstick) Normal (Negative); Ketone, Urine Negative (Negative); Leukocyte Negative Leu/uL (Negative); Nitrite Negative (Negative); Protein, Urine (Dipstick) Negative (Neg-Trace); Specific Gravity, Urine 1.006 (1.002-1.036); Urobilinogen Normal mg/dL (Less than 2)
[2020-06-05 13:38] LABS: #Eosinphils 0.1 thou/uL (0.0-0.7); #Lymphocytes 1.6 thou/uL (1.20-3.40); #Monocytes 0.7 thou/uL (0.11-0.59); #Neutrophils 3.8 thou/uL (1.40-6.50); %Basophils 0.2 % (0.0-1.0); %Eosinophils 1.1 % (0.0-10.0); %Lymphocytes 25.8 % (21.0-51.0); %Neutrophils 61.9 % (42.0-75.0); Hemoglobin 15.8 g/dL (14.0-18.0); Mean Corpuscular HGB CONC 33.5 g/dL (32.0-36.0); Mean Corpuscular Hemoglobin 33.1 pg (27.0-31.0); Mean Corpuscular Volume 98.7 fL (78.0-98.0); Mean Platelet Volume 7.8 fL (7.4-10.4); Platelet Count 209 thou/uL (130-400); RBC Distribution Width 12.4 % (11.5-14.5); Red Blood Cell (RBC) Count 4.79 mill/uL (4.70-6.10); White Blood Cell (WBC) Count 6.1 thou/uL (4.8-10.8)
[2020-06-05] MEDS ORDERED: Ondansetron PF 4 MG/2 ML Vial ONE (14:12)
[2020-06-05 14:24] LABS: Albumin 3.5 g/dL (3.4-4.8)
[2020-06-05 14:25] LABS: Chloride 108 mmol/L (98-107); Potassium 5.2 mmol/L (3.5-5.1); Sodium 141 mmol/L (136-145)
[2020-06-05 14:26] LABS: Calcium 8.6 mg/dL (7.8-10.44)
[2020-06-05 14:27] LABS: Globulin 3.3 g/dL (2.4-3.5); Glucose 95 mg/dL (83-110); Protein, Total 6.8 g/dL (5.8-8.1)
[2020-06-05 14:28] LABS: Anion Gap 14 mmol/L (10-20); Carbon Dioxide 24 mmol/L (23-31)
[2020-06-05 14:29] LABS: Bilirubin, Total 0.4 mg/dL (0.2-1.2)
[2020-06-05 14:30] LABS: Alkaline Phosphatase 71 U/L (40-110); Calc. Creatinine Clearance 0 mL/min (70-130)
[2020-06-05 14:31] LABS: BUN (Urea Nitrogen) 18 mg/dL (8.4-25.7)
[2020-06-05 14:32] LABS: AST (SGOT) 20 U/L (5-34)
[2020-06-05 14:33] LABS: ALT (SGPT) 15 U/L (8-55); CK (CPK) 54 U/L (30-200)
== END 2020-06-05 15:38 | disposition home or self-care (01) ==
LOC: ERS 12:47
DX: R00.1 Bradycardia, unspecified (principal)
CPT/HCPCS: 71045; 81003; 82550; 83735; 84484; 93005; 96374; 96375; 99285; J1610; 80053; 84443; 85025; J2405

== ENCOUNTER 2020-06-26 12:45 | Inpatient (IN) | payer MEDICARE ==
[2020-06-26 13:47] LABS: #Eosinphils 0.1 thou/uL (0.0-0.7); #Lymphocytes 1.5 thou/uL (1.20-3.40); #Monocytes 0.5 thou/uL (0.11-0.59); #Neutrophils 2.5 thou/uL (1.40-6.50); %Basophils 0.1 % (0.0-1.0); %Lymphocytes 33.4 % (21.0-51.0); %Monocytes 10.7 % (0.0-10.0); %Neutrophils 53.8 % (42.0-75.0); Hemoglobin 15.7 g/dL (14.0-18.0); Mean Corpuscular HGB CONC 33.8 g/dL (32.0-36.0); Mean Corpuscular Hemoglobin 32.8 pg (27.0-31.0); Mean Corpuscular Volume 96.9 fL (78.0-98.0); Mean Platelet Volume 8.2 fL (7.4-10.4); Platelet Count 190 thou/uL (130-400); RBC Distribution Width 12.1 % (11.5-14.5); Red Blood Cell (RBC) Count 4.78 mill/uL (4.70-6.10); White Blood Cell (WBC) Count 4.6 thou/uL (4.8-10.8)
[2020-06-26 14:12] LABS: ALT (SGPT) 17 U/L (8-55); AST (SGOT) 17 U/L (5-34); Albumin 3.4 g/dL (3.4-4.8); Alkaline Phosphatase 70 U/L (40-110); Anion Gap 15 mmol/L (10-20); BUN (Urea Nitrogen) 25 mg/dL (8.4-25.7); Bilirubin, Total 0.7 mg/dL (0.2-1.2); Calc. Creatinine Clearance 0 mL/min (70-130); Calcium 8.6 mg/dL (7.8-10.44); Carbon Dioxide 22 mmol/L (23-31); Chloride 107 mmol/L (98-107); Globulin 2.6 g/dL (2.4-3.5); Glucose 97 mg/dL (83-110); Lipase 34 U/L (8-78); Potassium 4.5 mmol/L (3.5-5.1); Sodium 139 mmol/L (136-145)
[2020-06-26 15:56] LABS: Bilirubin Negative (Negative); Blood, Urine Negative (Negative); Clarity Clear (Clear); Glucose, Urine (Dipstick) Normal (Negative); Ketone, Urine Negative (Negative); Leukocyte Negative Leu/uL (Negative); Nitrite Negative (Negative); Protein, Urine (Dipstick) Negative (Neg-Trace); Specific Gravity, Urine 1.023 (1.002-1.036); pH, Urine 6.5 (5.0-9.0)
[2020-06-26] MEDS ORDERED: Acetaminophen 325 MG TAB PO PRN (18:04)
[2020-06-26] MEDS ORDERED: Acetaminophen 650 MG Suppository PR PRN (18:04)
[2020-06-26 18:17] LABS: Troponin I Less than 0.010 ng/mL (< 0.028)
[2020-06-26 19:11] VITALS: BMI 26.2
[2020-06-26 20:57] LABS: CK (CPK) 57 U/L (30-200); CRP (Inflammatory) Less than 0.50 mg/dL (= or < 0.5)
[2020-06-26] MEDS: Sodium Chloride 0.9% 1,000 ML IV SCH (21:24)
[2020-06-26 22:46] LABS: Troponin I 0.016 ng/mL (< 0.028)
[2020-06-27 05:22] LABS: #Eosinphils 0.1 thou/uL (0.0-0.7); #Monocytes 0.6 thou/uL (0.11-0.59); #Neutrophils 2.8 thou/uL (1.40-6.50); %Basophils 0.4 % (0.0-1.0); %Eosinophils 1.9 % (0.0-10.0); %Lymphocytes 36.9 % (21.0-51.0); %Monocytes 10.8 % (0.0-10.0); Hemoglobin 15.7 g/dL (14.0-18.0); Mean Corpuscular HGB CONC 33.6 g/dL (32.0-36.0); Mean Corpuscular Hemoglobin 32.8 pg (27.0-31.0); Mean Corpuscular Volume 97.5 fL (78.0-98.0); Mean Platelet Volume 8.4 fL (7.4-10.4); Platelet Count 196 thou/uL (130-400); RBC Distribution Width 12.1 % (11.5-14.5); Red Blood Cell (RBC) Count 4.78 mill/uL (4.70-6.10); White Blood Cell (WBC) Count 5.5 thou/uL (4.8-10.8)
[2020-06-27 05:34] LABS: SARS-CoV-2 PCR by NAA Not Detected (NotDetected)
[2020-06-27 05:46] LABS: Anion Gap 13 mmol/L (10-20); BUN (Urea Nitrogen) 17 mg/dL (8.4-25.7); Calc. Creatinine Clearance 65 mL/min (70-130); Calcium 8.6 mg/dL (7.8-10.44); Carbon Dioxide 22 mmol/L (23-31); Chloride 107 mmol/L (98-107); Glucose 74 mg/dL (83-110); Potassium 4.4 mmol/L (3.5-5.1); Sodium 138 mmol/L (136-145)
[2020-06-27] MEDS ORDERED: Enoxaparin Sodium 80 MG/0.8 ML SYRINGE SC SCH (09:00)
[2020-06-27] MEDS: Enoxaparin Sodium 100 MG/ML SYRINGE SC SCH ×2 (10:16→20:58)
[2020-06-27] MEDS: Dronedarone HCl 400 MG TAB PO SCH (18:16)
[2020-06-27] MEDS: Sodium Chloride 0.9% 1,000 ML IV SCH (18:16)
[2020-06-27] MEDS: Donepezil HCl 10 MG TAB PO SCH (20:58)
[2020-06-28] MEDS ORDERED: Carvedilol 6.25 MG TAB PO SCH ×2 (04:30→09:00)
[2020-06-28] MEDS: Enoxaparin Sodium 100 MG/ML SYRINGE SC SCH ×2 (08:10→20:45)
[2020-06-28] MEDS: Dronedarone HCl 400 MG TAB PO SCH ×2 (08:10→17:13)
[2020-06-28] MEDS: Sodium Chloride 0.9% 1,000 ML IV SCH (17:18)
[2020-06-28] MEDS: Donepezil HCl 10 MG TAB PO SCH (20:45)
[2020-06-28] MEDS: Carvedilol 3.125 MG TAB PO SCH (20:45)
[2020-06-29 06:08] LABS: Hemoglobin 14.2 g/dL (14.0-18.0); Platelet Count 211 thou/uL (130-400)
[2020-06-29] MEDS: Enoxaparin Sodium 100 MG/ML SYRINGE SC SCH (09:15)
[2020-06-29] MEDS: Carvedilol 3.125 MG TAB PO SCH (09:15)
[2020-06-29] MEDS: Dronedarone HCl 400 MG TAB PO SCH ×2 (09:15→16:28)
[2020-06-29] MEDS: Donepezil HCl 10 MG TAB PO SCH (20:46)
[2020-06-30] MEDS ORDERED: Clindamycin/D5W 900 mg/50 ml Premix Bag ONE (07:05)
[2020-06-30] MEDS ORDERED: Vancomycin HCl 500 MG VIAL ONE (07:05)
[2020-06-30] MEDS ORDERED: Lidocaine 1% (PF) 30 ML VIAL ONE ×3 (07:05→11:41)
[2020-06-30] MEDS ORDERED: Sodium Chloride 0.9% 1,000 ML IV SCH (09:45)
[2020-06-30] MEDS ORDERED: Amlodipine 10 MG TAB PO SCH (09:45)
[2020-06-30] MEDS ORDERED: Levofloxacin 500 mg/D5W 100 ml Premix Bag ONE (10:07)
[2020-06-30] MEDS: Dronedarone HCl 400 MG TAB PO SCH ×2 (10:39→18:27)
[2020-06-30] MEDS ORDERED: Midazolam HCl 2 mg/2 ml Vial ONE (11:06)
[2020-06-30] MEDS ORDERED: Fentanyl 100 MCG/2 ML VIAL ONE (11:06)
[2020-06-30] MEDS ORDERED: Acetaminophen/Codeine 30-300mg Tablet PO PRN ×2 (12:39)
[2020-06-30] MEDS ORDERED: Iopamidol 370 76% 50 ML VIAL FS ONE (12:40)
[2020-06-30] MEDS ORDERED: Carvedilol 6.25 MG TAB PO SCH (13:15)
[2020-06-30] MEDS: Carvedilol 6.25 MG TAB PO SCH (18:27)
[2020-06-30] MEDS: Ciprofloxacin 500 MG TAB PO SCH (19:53)
[2020-06-30] MEDS: Donepezil HCl 10 MG TAB PO SCH (19:53)
[2020-07-01] MEDS: Ciprofloxacin 500 MG TAB PO SCH (06:05)
[2020-07-01] MEDS: Carvedilol 6.25 MG TAB PO SCH ×2 (08:29→18:58)
[2020-07-01] MEDS: Dronedarone HCl 400 MG TAB PO SCH ×2 (08:31→17:34)
[2020-07-01] MEDS ORDERED: Amlodipine 10 MG TAB PO SCH (09:00)
[2020-07-01 16:59] VITALS: TEMP 98.3
[2020-07-01 18:58] VITALS: BP 95/55
== END 2020-07-01 18:13 | disposition home or self-care (01) | DRG 242 ==
LOC: ERS 12:45 → 2SW 17:20 → OBSVTOIN 06-27 19:23
PROVIDERS: ADMIT Internal Medicine; ATTEND Internal Medicine
PROC: 0JH606Z Insertion of Pacemaker, Dual Chamber into Chest Subcutaneous Tissue and Fascia, Open Approach (ICD-10-PCS; principal; 2020-06-30)
PROC: 02H63JZ Insertion of Pacemaker Lead into Right Atrium, Percutaneous Approach (ICD-10-PCS; 2020-06-30)
PROC: 02HK3JZ Insertion of Pacemaker Lead into Right Ventricle, Percutaneous Approach (ICD-10-PCS; 2020-06-30)
DX: R00.1 Bradycardia, unspecified (principal); G93.41 Metabolic encephalopathy; N17.9 Acute kidney failure, unspecified; Z20.822 Contact with and (suspected) exposure to COVID-19; I44.0 Atrioventricular block, first degree; I45.10 Unspecified right bundle-branch block; I48.91 Unspecified atrial fibrillation; R55 Syncope and collapse; I95.9 Hypotension, unspecified; R41.0 Disorientation, unspecified; R29.6 Repeated falls; F03.90 Unspecified dementia, unspecified severity, without behavioral disturbance, psychotic disturbance, mood disturbance, and anxiety; I10 Essential (primary) hypertension; Z86.19 Personal history of other infectious and parasitic diseases; Z86.73 Personal history of transient ischemic attack (TIA), and cerebral infarction without residual deficits; Z88.0 Allergy status to penicillin; Z79.01 Long term (current) use of anticoagulants; Z79.899 Other long term (current) drug therapy
CPT/HCPCS: 33208; 36415; 70450; 71045; 80048; 80053; 81003; 82550; 82565; 83605; 83690; 83735; 83880; 84484; 85014; 85018; 85025; 85049; 86140; 86850; 86900; 86901; 87040; 87086; 87635; 93005; 93798; 93880; 93970; 96372; 97139; 99152; 99153; C1785; C1898; G0378; J1650; J1956; J2001; J2250; J3010; J3370; J3490; Q9967; U0003; U0005

== ENCOUNTER 2022-03-05 11:07 | Emergency (ER) | payer OTHER ==
[2022-03-05 12:26] LABS: #Lymphocytes 1.6 thou/uL (1.20-3.40); #Monocytes 0.9 thou/uL (0.11-0.59); #Neutrophils 6.5 thou/uL (1.40-6.50); %Basophils 0.1 % (0.0-1.0); %Eosinophils 0.1 % (0.0-10.0); %Lymphocytes 17.5 % (21.0-51.0); %Monocytes 10.4 % (0.0-10.0); %Neutrophils 71.9 % (42.0-75.0); Hemoglobin 14.5 g/dL (14.0-18.0); Mean Corpuscular HGB CONC 34.7 g/dL (32.0-36.0); Mean Corpuscular Hemoglobin 34.5 pg (27.0-31.0); Mean Corpuscular Volume 99.4 fl (78.0-98.0); Mean Platelet Volume 7.7 fL (7.4-10.4); Platelet Count 267 10x3/uL (130-400); RBC Distribution Width 12.6 % (11.5-14.5)
[2022-03-05] MEDS ORDERED: Vancomycin 1 GM/200 ML (FROZEN) BAG ONE (12:29)
[2022-03-05] MEDS ORDERED: cefTRIAXone\\ROCEPHIN 2 GM VIAL ONE (12:29)
[2022-03-05 12:39] LABS: ALT (SGPT) 17 U/L (8-55); AST (SGOT) 17 U/L (5-34); Albumin 3.3 g/dL (3.4-4.8); Alkaline Phosphatase 72 U/L (40-110); Anion Gap 13 mmol/L (10-20); BUN (Urea Nitrogen) 19 mg/dL (8.4-25.7); Bilirubin, Total 1.1 mg/dL (0.2-1.2); Calc. Creatinine Clearance 0 mL/min (70-130); Calcium 8.6 mg/dL (7.8-10.44); Carbon Dioxide 26 mmol/L (23-31); Chloride 104 mmol/L (98-107); Estimated GFR 83; Globulin 3.1 g/dL (2.4-3.5); Glucose 88 mg/dL (83-110); Potassium 4.3 mmol/L (3.5-5.1); Protein, Total 6.4 g/dL (5.8-8.1); Sodium 139 mmol/L (136-145)
[2022-03-05 12:44] LABS: Acetaminophen Less than 10.0 mcg/mL (10.0-30.0); Alcohol Less than 10 mg/dL (Less than 10); CK (CPK) 58 U/L (30-200); Salicylate Less than 8.0 mg/dL (15.0-30.0)
[2022-03-05 12:55] LABS: Amphetamine Not Detected (NotDetected); Barbiturates Screen Not Detected (NotDetected); Benzodiazepine Screen Not Detected (NotDetected); Cocaine Metabolite Screen Not Detected (NotDetected); Methadone Not Detected (NotDetected); Methamphetamine Not Detected (NotDetected); Opiate Screen Not Detected (NotDetected); Oxycodone Screen Not Detected (NotDetected); Phencyclidine (PCP) Not Detected (NotDetected); THC/Cannabinoid Screen Not Detected (NotDetected); Tricyclic Screen Not Detected (NotDetected)
[2022-03-05 13:04] LABS: Bilirubin Negative (Negative); Blood, Urine 2+ (Negative); Clarity Extra Turbid (Clear); Glucose, Urine (Dipstick) Normal (Negative); Ketone, Urine Negative (Negative); Leukocyte 500 Leu/uL (Negative); Nitrite Negative (Negative); Protein, Urine (Dipstick) 30 mg/dL (Neg-Trace); Squamous Epithelial None Seen HPF (0-3); Urobilinogen 6 mg/dL (Less than 2); WBC/HPF Greater than 50 HPF (0-3); pH, Urine 6.5 (5.0-9.0)
[2022-03-05 13:11] LABS: Bacteria/HPF 3+ HPF (None Seen)
== END 2022-03-05 15:30 | disposition home or self-care (01) ==
LOC: ERS 11:07
DX: N39.0 Urinary tract infection, site not specified (principal); W19.XXXA Unspecified fall, initial encounter
CPT/HCPCS: 70450; 72125; 80053; 80306; 80307; 82140; 82550; 83605; 84484; 85025; 87040; 93005; J3370; 36415; 51701; 81003; 81015; 96365; 96367; J0696

== ENCOUNTER 2022-07-13 06:55 | Emergency (ER) | payer OTHER | END 2022-07-13 09:39 | disposition home or self-care (01) | LOC: ERS 06:55 | DX: R53.1 Weakness (principal) | CPT/HCPCS: 70450; 72125 ==

== ENCOUNTER 2022-12-10 15:35 | Inpatient (IN) | payer OTHER ==
[2022-12-10] MEDS ORDERED: Iopamidol-370 76% 500 ML MDV (1 ML CHARGE) ONE (16:08)
[2022-12-10 16:43] LABS: Bilirubin Negative (Negative); Blood, Urine 3+ (Negative); CAUTI Indications for Culture Fever or rigors; Clarity Clear (Clear); Glucose, Urine (Dipstick) Normal (Negative); Ketone, Urine Negative (Negative); Leukocyte 500 Leu/uL (Negative); Nitrite Negative (Negative); Protein, Urine (Dipstick) 10 mg/dL (Neg-Trace); Specific Gravity, Urine 1.017 (1.002-1.036); Squamous Epithelial None Seen HPF (0-3)
[2022-12-10 16:50] LABS: Bacteria/HPF 2+ HPF (None Seen); WBC/HPF 21-50 HPF (0-3)
[2022-12-10 16:51] LABS: Urine Culture Reflex Yes Yes
[2022-12-10 16:54] LABS: #Monocytes 1.1 thou/uL (0.11-0.59); #Neutrophils 10.1 thou/uL (1.40-6.50); %Basophils 0.1 % (0.0-1.0); %Lymphocytes 9.6 % (21.0-51.0); %Monocytes 9.2 % (0.0-10.0); %Neutrophils 80.9 % (42.0-75.0); Hematocrit 45.7 % (42.0-52.0); Hemoglobin 15.6 g/dL (14.0-18.0); Mean Corpuscular HGB CONC 34.1 g/dL (32.0-36.0); Mean Corpuscular Hemoglobin 32.5 pg (27.0-31.0); Mean Corpuscular Volume 95.2 fl (78.0-98.0); Mean Platelet Volume 10.1 fL (7.4-10.4); Platelet Count 186 10x3/uL (130-400); RBC Distribution Width 12.9 % (11.5-14.5); White Blood Cell (WBC) Count 12.4 10x3/uL (4.8-10.8)
[2022-12-10 17:12] LABS: INR-International Normal Ratio 1.3; PTT 29.9 sec (22.9-36.1); Prothrombin Time 16.4 sec (12.0-14.7)
[2022-12-10 17:21] LABS: Acetaminophen Less than 10 mcg/mL (10.0-30.0); Alcohol Less than 10.0 mg/dL (Less than 10); Lipase 18 U/L (8-78); Magnesium 2.1 mg/dL (1.6-2.6); Salicylate Less than 8.0 mg/dL (15.0-30.0)
[2022-12-10 17:22] LABS: ALT (SGPT) 9 U/L (8-55); AST (SGOT) 14 U/L (5-34); Albumin 3.5 g/dL (3.4-4.8); Alkaline Phosphatase 79 U/L (40-110); Anion Gap 19 mmol/L (10-20); BUN (Urea Nitrogen) 22 mg/dL (8.4-25.7); Bilirubin, Total 2.6 mg/dL (0.2-1.2); CK (CPK) 212 U/L (30-200); Calc. Creatinine Clearance 0 mL/min (70-130); Calcium 8.6 mg/dL (7.8-10.44); Carbon Dioxide 25 mmol/L (23-31); Chloride 100 mmol/L (98-107); Estimated GFR 57; Globulin 3.3 g/dL (2.4-3.5); Glucose 132 mg/dL (83-110); Potassium 4.2 mmol/L (3.5-5.1); Protein, Total 6.8 g/dL (5.8-8.1); Sodium 140 mmol/L (136-145)
[2022-12-10 17:24] LABS: Troponin I 0.026 ng/mL (< 0.028)
[2022-12-10] MEDS ORDERED: Cefepime 2 GM VIAL ONE (18:35)
[2022-12-10] MEDS ORDERED: Vancomycin 1.5 GRAM/300 ML BAG 1.5 GM in Premix Bag 1 BAG IVPB SCH (18:45)
[2022-12-10 18:54] LABS: SARS-CoV-2 NAA Rapid Test Not Detected (NotDetected)
[2022-12-10] MEDS ORDERED: Ondansetron PF 4 MG/2 ML Vial IVP PRN (19:20)
[2022-12-10] MEDS ORDERED: Acetaminophen 325 MG TAB PO PRN (19:20)
[2022-12-10 20:21] LABS: Lactic Acid 1.5 mmol/L (0.5-2.2)
[2022-12-10 20:31] LABS: Troponin I 0.016 ng/mL (< 0.028)
[2022-12-10 21:15] VITALS: BMI 22.8
[2022-12-11 04:19] LABS: #Monocytes 1.3 thou/uL (0.11-0.59); #Neutrophils 9.2 thou/uL (1.40-6.50); %Basophils 0.2 % (0.0-1.0); %Lymphocytes 12.3 % (21.0-51.0); %Monocytes 10.6 % (0.0-10.0); %Neutrophils 76.6 % (42.0-75.0); Hematocrit 44.1 % (42.0-52.0); Hemoglobin 14.7 g/dL (14.0-18.0); Mean Corpuscular HGB CONC 33.3 g/dL (32.0-36.0); Mean Corpuscular Hemoglobin 31.6 pg (27.0-31.0); Mean Corpuscular Volume 94.8 fl (78.0-98.0); Mean Platelet Volume 10.5 fL (7.4-10.4); Platelet Count 199 10x3/uL (130-400); RBC Distribution Width 13.2 % (11.5-14.5); Red Blood Cell (RBC) Count 4.65 mill/uL (4.70-6.10)
[2022-12-11 04:47] LABS: Anion Gap 16 mmol/L (10-20); BUN (Urea Nitrogen) 20 mg/dL (8.4-25.7); Calc. Creatinine Clearance 59 mL/min (70-130); Calcium 8.7 mg/dL (7.8-10.44); Carbon Dioxide 26 mmol/L (23-31); Chloride 105 mmol/L (98-107); Estimated GFR 68; Glucose 116 mg/dL (83-110); Potassium 3.9 mmol/L (3.5-5.1); Sodium 143 mmol/L (136-145)
[2022-12-11 04:50] LABS: ALT (SGPT) 8 U/L (8-55); AST (SGOT) 13 U/L (5-34); Albumin 3.1 g/dL (3.4-4.8); Alkaline Phosphatase 67 U/L (40-110); Bilirubin, Direct 1.2 mg/dL (0.1-0.3); Bilirubin, Total 1.7 mg/dL (0.2-1.2); Protein, Total 6.3 g/dL (5.8-8.1)
[2022-12-11] MEDS: Cefepime 1 GM in Sodium Chloride 0.9% 100 ML IVPB SCH ×2 (06:15→17:36)
[2022-12-11] MEDS: Vancomycin HCl 750 MG in Sodium Chloride 0.9% 250 ML 250 ML IVPB SCH ×2 (10:46→19:59)
[2022-12-12 04:20] LABS: #Monocytes 1.3 thou/uL (0.11-0.59); #Neutrophils 10.2 thou/uL (1.40-6.50); %Basophils 0.2 % (0.0-1.0); %Lymphocytes 11.7 % (21.0-51.0); %Monocytes 10.2 % (0.0-10.0); %Neutrophils 77.6 % (42.0-75.0); Hematocrit 40.7 % (42.0-52.0); Hemoglobin 13.7 g/dL (14.0-18.0); Mean Corpuscular HGB CONC 33.7 g/dL (32.0-36.0); Mean Corpuscular Hemoglobin 31.9 pg (27.0-31.0); Mean Corpuscular Volume 94.9 fl (78.0-98.0); Mean Platelet Volume 10.6 fL (7.4-10.4); Platelet Count 218 10x3/uL (130-400); RBC Distribution Width 13.4 % (11.5-14.5); Red Blood Cell (RBC) Count 4.29 mill/uL (4.70-6.10); White Blood Cell (WBC) Count 13.1 10x3/uL (4.8-10.8)
[2022-12-12 04:50] LABS: Anion Gap 14 mmol/L (10-20); BUN (Urea Nitrogen) 22 mg/dL (8.4-25.7); Calc. Creatinine Clearance 68 mL/min (70-130); Calcium 8.4 mg/dL (7.8-10.44); Carbon Dioxide 25 mmol/L (23-31); Chloride 107 mmol/L (98-107); Estimated GFR 82; Glucose 117 mg/dL (83-110); Potassium 3.5 mmol/L (3.5-5.1); Sodium 142 mmol/L (136-145)
[2022-12-12] MEDS: Cefepime 1 GM in Sodium Chloride 0.9% 100 ML IVPB SCH (05:28)
[2022-12-12 07:23] LABS: Vancomycin, Trough 12.2 ug/mL
[2022-12-12] MEDS ORDERED: Vancomycin 1 GM in Premix Bag 1 BAG IVPB SCH (08:00)
[2022-12-12] MEDS: Dronedarone HCl 400 MG TAB PO SCH (16:51)
[2022-12-12] MEDS: Donepezil HCl 10 MG TAB PO SCH (20:42)
[2022-12-12] MEDS: Cefdinir 300 MG CAP PO SCH (20:42)
[2022-12-12] MEDS: Tamsulosin HCl 0.4 MG CAP PO SCH (20:42)
[2022-12-12] MEDS: Apixaban 5 MG TAB PO SCH (20:42)
[2022-12-12] MEDS: Carvedilol 3.125 MG TAB PO SCH (20:42)
[2022-12-13 04:13] LABS: #Monocytes 1.2 thou/uL (0.11-0.59); #Neutrophils 8.8 thou/uL (1.40-6.50); %Basophils 0.2 % (0.0-1.0); %Eosinophils 0.3 % (0.0-10.0); %Lymphocytes 12.9 % (21.0-51.0); %Monocytes 10.5 % (0.0-10.0); %Neutrophils 75.5 % (42.0-75.0); Hematocrit 39.6 % (42.0-52.0); Hemoglobin 13.4 g/dL (14.0-18.0); Mean Corpuscular HGB CONC 33.8 g/dL (32.0-36.0); Mean Corpuscular Hemoglobin 31.8 pg (27.0-31.0); Mean Corpuscular Volume 93.8 fl (78.0-98.0); Mean Platelet Volume 10.6 fL (7.4-10.4); Platelet Count 228 10x3/uL (130-400); RBC Distribution Width 13.2 % (11.5-14.5); Red Blood Cell (RBC) Count 4.22 mill/uL (4.70-6.10); White Blood Cell (WBC) Count 11.6 10x3/uL (4.8-10.8)
[2022-12-13 04:48] LABS: Anion Gap 15 mmol/L (10-20); BUN (Urea Nitrogen) 19 mg/dL (8.4-25.7); Calc. Creatinine Clearance 67 mL/min (70-130); Calcium 8.1 mg/dL (7.8-10.44); Carbon Dioxide 25 mmol/L (23-31); Chloride 103 mmol/L (98-107); Estimated GFR 80; Glucose 112 mg/dL (83-110); Potassium 3.3 mmol/L (3.5-5.1); Sodium 140 mmol/L (136-145)
[2022-12-13] MEDS ORDERED: Potassium Chloride 20 MEQ TAB PO SCH (08:00)
[2022-12-13] MEDS: Digoxin 0.125 MG TAB PO SCH (08:47)
[2022-12-13] MEDS: Cefdinir 300 MG CAP PO SCH ×2 (08:48→20:15)
[2022-12-13] MEDS: Multivit, Therapeutic 1 TAB PO SCH (08:48)
[2022-12-13] MEDS: Carvedilol 3.125 MG TAB PO SCH ×2 (08:48→20:14)
[2022-12-13] MEDS: Apixaban 5 MG TAB PO SCH ×2 (08:48→20:14)
[2022-12-13] MEDS: Dronedarone HCl 400 MG TAB PO SCH ×2 (08:48→18:31)
[2022-12-13] MEDS: Tamsulosin HCl 0.4 MG CAP PO SCH (20:14)
[2022-12-13] MEDS: Donepezil HCl 10 MG TAB PO SCH (20:15)
[2022-12-14] MEDS: Digoxin 0.125 MG TAB PO SCH (09:30)
[2022-12-14] MEDS: Cefdinir 300 MG CAP PO SCH ×2 (09:30→20:21)
[2022-12-14] MEDS: Dronedarone HCl 400 MG TAB PO SCH ×2 (09:31→16:51)
[2022-12-14] MEDS: Apixaban 5 MG TAB PO SCH ×2 (09:31→20:19)
[2022-12-14] MEDS: Multivit, Therapeutic 1 TAB PO SCH (09:31)
[2022-12-14] MEDS: Carvedilol 3.125 MG TAB PO SCH ×2 (09:31→20:19)
[2022-12-14] MEDS: Donepezil HCl 10 MG TAB PO SCH (20:19)
[2022-12-14] MEDS: Tamsulosin HCl 0.4 MG CAP PO SCH (20:19)
[2022-12-15] MEDS: Digoxin 0.125 MG TAB PO SCH (08:51)
[2022-12-15] MEDS: Dronedarone HCl 400 MG TAB PO SCH ×2 (08:52→17:57)
[2022-12-15] MEDS: Cefdinir 300 MG CAP PO SCH ×2 (08:52→20:03)
[2022-12-15] MEDS: Apixaban 5 MG TAB PO SCH ×2 (08:52→20:03)
[2022-12-15] MEDS: Carvedilol 3.125 MG TAB PO SCH ×2 (08:52→20:03)
[2022-12-15] MEDS: Multivit, Therapeutic 1 TAB PO SCH (08:54)
[2022-12-15 08:58] LABS: #Eosinphils 0.1 thou/uL (0.0-0.7); #Monocytes 0.9 thou/uL (0.11-0.59); #Neutrophils 5.6 thou/uL (1.40-6.50); %Basophils 0.3 % (0.0-1.0); %Eosinophils 1.1 % (0.0-10.0); %Lymphocytes 16.6 % (21.0-51.0); %Monocytes 11.3 % (0.0-10.0); %Neutrophils 70.3 % (42.0-75.0); Hematocrit 41.4 % (42.0-52.0); Hemoglobin 14.2 g/dL (14.0-18.0); Mean Corpuscular HGB CONC 34.3 g/dL (32.0-36.0); Mean Corpuscular Hemoglobin 31.6 pg (27.0-31.0); Mean Corpuscular Volume 92.2 fl (78.0-98.0); Mean Platelet Volume 10.3 fL (7.4-10.4); Platelet Count 272 10x3/uL (130-400); RBC Distribution Width 13.1 % (11.5-14.5); Red Blood Cell (RBC) Count 4.49 mill/uL (4.70-6.10); White Blood Cell (WBC) Count 7.9 10x3/uL (4.8-10.8)
[2022-12-15 09:18] LABS: Anion Gap 12 mmol/L (10-20); BUN (Urea Nitrogen) 20 mg/dL (8.4-25.7); Calc. Creatinine Clearance 72 mL/min (70-130); Calcium 8.2 mg/dL (7.8-10.44); Carbon Dioxide 26 mmol/L (23-31); Chloride 105 mmol/L (98-107); Estimated GFR 84; Glucose 97 mg/dL (83-110); Potassium 3.6 mmol/L (3.5-5.1); Sodium 139 mmol/L (136-145)
[2022-12-15] MEDS: Tamsulosin HCl 0.4 MG CAP PO SCH (20:03)
[2022-12-15] MEDS: Donepezil HCl 10 MG TAB PO SCH (20:03)
[2022-12-16] MEDS: Dronedarone HCl 400 MG TAB PO SCH ×2 (10:56→16:09)
[2022-12-16] MEDS: Digoxin 0.125 MG TAB PO SCH (10:56)
[2022-12-16] MEDS: Carvedilol 3.125 MG TAB PO SCH (10:57)
[2022-12-16] MEDS: Apixaban 5 MG TAB PO SCH (10:57)
[2022-12-16] MEDS: Cefdinir 300 MG CAP PO SCH (10:57)
[2022-12-16] MEDS: Multivit, Therapeutic 1 TAB PO SCH (10:58)
[2022-12-16 16:09] VITALS: BP 108/59; TEMP 97.6
[2022-12-19] MEDS ORDERED: Apixaban 5 MG TAB PO SCH (21:00)
== END 2022-12-16 19:12 | DRG 175 ==
LOC: ERS 15:35 → 2NO 19:20
PROVIDERS: ADMIT Internal Medicine; ATTEND Internal Medicine
DX: I26.99 Other pulmonary embolism without acute cor pulmonale (principal); J18.9 Pneumonia, unspecified organism; E87.20 Acidosis, unspecified; N30.00 Acute cystitis without hematuria; I82.412 Acute embolism and thrombosis of left femoral vein; I82.432 Acute embolism and thrombosis of left popliteal vein; I82.442 Acute embolism and thrombosis of left tibial vein; I50.9 Heart failure, unspecified; I25.10 Atherosclerotic heart disease of native coronary artery without angina pectoris; I11.0 Hypertensive heart disease with heart failure; I71.21 Aneurysm of the ascending aorta, without rupture; I45.10 Unspecified right bundle-branch block; Z20.822 Contact with and (suspected) exposure to COVID-19; Z66 Do not resuscitate; I48.0 Paroxysmal atrial fibrillation; G30.9 Alzheimer's disease, unspecified; F02.80 Dementia in other diseases classified elsewhere, unspecified severity, without behavioral disturbance, psychotic disturbance, mood disturbance, and anxiety; N40.0 Benign prostatic hyperplasia without lower urinary tract symptoms; Z95.0 Presence of cardiac pacemaker; Z98.890 Other specified postprocedural states; Z88.0 Allergy status to penicillin; Z86.73 Personal history of transient ischemic attack (TIA), and cerebral infarction without residual deficits; Z79.01 Long term (current) use of anticoagulants; Z79.899 Other long term (current) drug therapy
CPT/HCPCS: 36415; 36416; 51701; 70450; 71275; 72125; 74177; 80048; 80053; 80076; 80202; 80307; 81001; 82550; 83605; 83690; 83735; 83880; 84484; 85025; 85610; 85730; 87040; 87077; 87081; 87086; 93005; 93970; 96365; 96367; 96372; J0692; J1650; J3370; J3370-JW; J3490; J7050; Q9967

== ENCOUNTER 2022-12-27 10:39 | Inpatient (IN) | payer OTHER ==
[~2022-12-27 10:39] MED LIST changes: +Iopamidol-370 76% 500 ML MDV (1 ML CHARGE) ONE; -Magnevist 469MG/ML 20 ML VIAL ONE
[2022-12-27 11:41] LABS: #Eosinphils 0.2 thou/uL (0.0-0.7); #Monocytes 0.8 thou/uL (0.11-0.59); #Neutrophils 3.9 thou/uL (1.40-6.50); %Basophils 0.4 % (0.0-1.0); %Eosinophils 2.2 % (0.0-10.0); %Lymphocytes 28.3 % (21.0-51.0); %Monocytes 11.3 % (0.0-10.0); %Neutrophils 57.7 % (42.0-75.0); Hematocrit 46.4 % (42.0-52.0); Hemoglobin 15.8 g/dL (14.0-18.0); Mean Corpuscular HGB CONC 34.1 g/dL (32.0-36.0); Mean Corpuscular Hemoglobin 31.5 pg (27.0-31.0); Mean Corpuscular Volume 92.6 fl (78.0-98.0); Mean Platelet Volume 9.7 fL (7.4-10.4); Platelet Count 325 10x3/uL (130-400); RBC Distribution Width 13.4 % (11.5-14.5); Red Blood Cell (RBC) Count 5.01 mill/uL (4.70-6.10); White Blood Cell (WBC) Count 6.8 10x3/uL (4.8-10.8)
[2022-12-27 11:49] LABS: Bilirubin Negative (Negative); Blood, Urine Trace (Negative); Glucose, Urine (Dipstick) Negative (Negative); Ketone, Urine Negative (Negative); Leukocyte Negative (Negative); Nitrite Negative (Negative); Protein, Urine (Dipstick) Negative (Neg-Trace); Specific Gravity, Urine 1.025 (1.005-1.030); pH, Urine 5.5 (5.0-9.0)
[2022-12-27 11:50] LABS: Clarity Hazy (Clear)
[2022-12-27 11:57] LABS: CAUTI Indications for Culture Alt mental st,lethar; RBC/HPF 0-3 HPF (0-3); Squamous Epithelial 0-3 HPF (0-3); WBC/HPF None Seen HPF (0-3)
[2022-12-27 11:58] LABS: Bacteria/HPF Rare-Few HPF (None Seen)
[2022-12-27 12:00] LABS: Urine Culture Reflex No No
[2022-12-27 12:03] LABS: AST (SGOT) 15 U/L (5-34); Albumin 3.3 g/dL (3.4-4.8); Alkaline Phosphatase 90 U/L (40-110); Anion Gap 13 mmol/L (10-20); BUN (Urea Nitrogen) 18 mg/dL (8.4-25.7); Bilirubin, Total 0.8 mg/dL (0.2-1.2); Calc. Creatinine Clearance 0 mL/min (70-130); Calcium 8.9 mg/dL (7.8-10.44); Carbon Dioxide 26 mmol/L (23-31); Chloride 105 mmol/L (98-107); Estimated GFR 61; Globulin 3.4 g/dL (2.4-3.5); Glucose 91 mg/dL (83-110); Potassium 3.9 mmol/L (3.5-5.1); Protein, Total 6.7 g/dL (5.8-8.1); Sodium 140 mmol/L (136-145)
[2022-12-27 12:04] LABS: ALT (SGPT) 15 U/L (8-55); Troponin I Less than 0.010 ng/mL (< 0.028)
[2022-12-27] MEDS ORDERED: Cefepime 2 GM VIAL ONE (14:52)
[2022-12-27] MEDS ORDERED: VANCOMYCIN 2 GRAM/500 ML BAG 2 GM in Premix Bag 1 BAG IVPB SCH (15:30)
[2022-12-27] MEDS ORDERED: Acetaminophen 325 MG TAB PO PRN (15:46)
[2022-12-27 15:49] VITALS: BMI 21.3
[2022-12-27] MEDS ORDERED: Metoclopramide HCl 10 MG/2 ML VIAL IVP PRN (15:52)
[2022-12-27] MEDS: Dronedarone HCl 400 MG TAB PO SCH (18:33)
[2022-12-27] MEDS: Carvedilol 3.125 MG TAB PO SCH (18:33)
[2022-12-27] MEDS: Tamsulosin HCl 0.4 MG CAP PO SCH (22:50)
[2022-12-27] MEDS: Donepezil HCl 10 MG TAB PO SCH (22:50)
[2022-12-28] MEDS ORDERED: Cefepime 2 GM in Sodium Chloride 0.9% 100 ML IVPB SCH (03:00)
[2022-12-28 04:08] LABS: #Eosinphils 0.2 thou/uL (0.0-0.7); #Monocytes 0.7 thou/uL (0.11-0.59); #Neutrophils 4.4 thou/uL (1.40-6.50); %Basophils 0.3 % (0.0-1.0); %Eosinophils 2.9 % (0.0-10.0); %Lymphocytes 16.8 % (21.0-51.0); %Monocytes 10.3 % (0.0-10.0); %Neutrophils 69.2 % (42.0-75.0); Hematocrit 45.3 % (42.0-52.0); Hemoglobin 15.1 g/dL (14.0-18.0); Mean Corpuscular HGB CONC 33.3 g/dL (32.0-36.0); Mean Corpuscular Hemoglobin 31.7 pg (27.0-31.0); Mean Platelet Volume 9.9 fL (7.4-10.4); Platelet Count 297 10x3/uL (130-400); RBC Distribution Width 13.5 % (11.5-14.5); Red Blood Cell (RBC) Count 4.77 mill/uL (4.70-6.10); White Blood Cell (WBC) Count 6.3 10x3/uL (4.8-10.8)
[2022-12-28 06:44] LABS: Anion Gap 12 mmol/L (10-20); BUN (Urea Nitrogen) 19 mg/dL (8.4-25.7); Calc. Creatinine Clearance 58 mL/min (70-130); Calcium 8.3 mg/dL (7.8-10.44); Carbon Dioxide 25 mmol/L (23-31); Chloride 105 mmol/L (98-107); Estimated GFR 72; Glucose 86 mg/dL (83-110); Potassium 3.6 mmol/L (3.5-5.1); Sodium 138 mmol/L (136-145)
[2022-12-28] MEDS: Dronedarone HCl 400 MG TAB PO SCH ×2 (08:57→16:29)
[2022-12-28] MEDS: Digoxin 0.25 MG TAB PO SCH (08:57)
[2022-12-28] MEDS: Carvedilol 3.125 MG TAB PO SCH ×2 (08:58→16:29)
[2022-12-28] MEDS ORDERED: VANCOMYCIN 1.25 GM/250 ML BAG 1.25 GM in Premix Bag 1 BAG IVPB SCH (15:00)
[2022-12-28] MEDS: Cefepime 1 GM in Sodium Chloride 0.9% 100 ML IVPB SCH (16:29)
[2022-12-28] MEDS ORDERED: Donepezil HCl 10 MG TAB PO SCH (21:00)
[2022-12-28] MEDS ORDERED: Tamsulosin HCl 0.4 MG CAP PO SCH (21:00)
[2022-12-28] MEDS: Donepezil HCl 10 MG TAB PO SCH ×3 (21:29→21:46)
[2022-12-28] MEDS: Tamsulosin HCl 0.4 MG CAP PO SCH (21:29)
[2022-12-28] MEDS: Apixaban 5 MG TAB PO SCH ×3 (21:29→21:46)
[2022-12-29] MEDS: Cefepime 1 GM in Sodium Chloride 0.9% 100 ML IVPB SCH (03:45)
[2022-12-29] MEDS: Carvedilol 3.125 MG TAB PO SCH (09:39)
[2022-12-29] MEDS: Apixaban 5 MG TAB PO SCH (09:39)
[2022-12-29] MEDS: Dronedarone HCl 400 MG TAB PO SCH (09:39)
[2022-12-29] MEDS: Digoxin 0.25 MG TAB PO SCH (09:39)
[2022-12-29 10:31] VITALS: BP 111/69; TEMP 97.4
== END 2022-12-29 11:50 | DRG 175 ==
LOC: ERS 10:39 → ERHOLD 14:59 → SURG B 19:58 → 2NO 21:47
PROVIDERS: ADMIT Family Medicine; ATTEND Hospitalist
DX: I26.99 Other pulmonary embolism without acute cor pulmonale (principal); J18.9 Pneumonia, unspecified organism; J90 Pleural effusion, not elsewhere classified; I10 Essential (primary) hypertension; I95.9 Hypotension, unspecified; I48.0 Paroxysmal atrial fibrillation; N40.0 Benign prostatic hyperplasia without lower urinary tract symptoms; Z66 Do not resuscitate; F02.80 Dementia in other diseases classified elsewhere, unspecified severity, without behavioral disturbance, psychotic disturbance, mood disturbance, and anxiety; G30.9 Alzheimer's disease, unspecified; Z20.822 Contact with and (suspected) exposure to COVID-19; Z79.01 Long term (current) use of anticoagulants; Z95.0 Presence of cardiac pacemaker; Z88.0 Allergy status to penicillin
CPT/HCPCS: 36415; 71045; 71275; 74177; 80048; 80053; 80162; 81001; 84484; 85025; 87040; 87081; 87635; 93005; 96365; 96367; J0692; J1650; J3370; J3490; Q9967

== ENCOUNTER 2023-10-02 | Emergency (ER) | payer OTHER | END 2023-10-03 02:45 | disposition home or self-care (01) | LOC: ERS | DX: B02.9 Zoster without complications (principal); I48.91 Unspecified atrial fibrillation; Z95.0 Presence of cardiac pacemaker | CPT/HCPCS: 99283 ==